=== PATIENT | male | born 1975 | race Caucasian/White ===

== ENCOUNTER → 2018-03-07 11:59 | Outpatient (CLI) | payer OTHER, SELFPAY ==
[2018-03-07 13:25] LABS: Ferritin 212 ng/mL (26-388)
[2018-03-10 16:10] LABS: Protein C Antigen 178 % (60-150); Protein C, Functional 180 % (73-180)
[2018-03-11 08:54] LABS: Protein S, Free 75 % (57-157); Protein S, Funtional 76 % (63-140); Protein S, Total 85 % (60-150); Transferrin 290 mg/dL (200-370)
== END ==
PROVIDERS: Family Provider Family Medicine; PCP Family Medicine; Visit Provider Family Medicine
DX: Z00.01 Encounter for general adult medical examination with abnormal findings (principal); I87.2 Venous insufficiency (chronic) (peripheral); D58.2 Other hemoglobinopathies; D68.59 Other primary thrombophilia; Z86.718 Personal history of other venous thrombosis and embolism
CPT/HCPCS: 36415; 81241; 82728; 84466; 85302; 85303; 85305; 85306

== ENCOUNTER → 2019-02-23 11:47 | Outpatient (CLI) | payer OTHER, SELFPAY ==
--- NOTE | 2019-02-23 | IMM_PTH ---
PATIENT: BRANDON MIGUEL LOC: [facility] U#:[id number] AGE/SX: 49/M ROOM: RE02/23/[address]: Dr. Chapito Almendarez DO : 1975 BED: DIS: SPEC #: [id number] RECD: 03/01/19 09:01 STATUS: LAVELL REAaron #: [id number] JEFFERY: 02/23/19 00:[address]: Chapito Almendarez DEPT: IMMUNOHISTOCHEMISTRY RECD BY: Marion Cesar Tissues: Skin of back, NOS Procedures: CK5-6 (add) P53 (add) Vimentin (add) Pankeratin (initial) MELAN-A (add) P40 (add) S-100 (add) PHYSICIAN & INSTITUTION [place] [id number] SPECIMEN INFORMATION: Tissue Source: Punch biopsy 4 mm low back Clinical Info: Rule out melanoma Specimen Number: [id number] CPT code: 05489, 30152 x6 METHODOLOGY: Deparaffinized sections of prefer/formalin-fixed tissue or PAP/DQ stained slides are incubated with monoclonal/polyclonal antibodies/oligonucleotide probes. Localization is made via biotin free immunoperoxidase method. Appropriate controls are performed and reacted as expected. Results on target cell population are indicated in the following table: RESULTS: ANTIBODY / CLONE RESULT AE1-3 (AE1/AE3/PCK26) negative P40 (BC28) negative Vimentin (V9) positive S-100 (4C4.9) positive Melan A (A103) positive CK5-6 (D5 & 1684) negative P53 (DO-7) negative These tests were developed and their performance characteristics determined by [facility]. They may not have been cleared or approved by the U.S. Food and Drug Administration. The FDA has determined that such clearance or approval is not necessary. INTERPRETATION: Skin of low back, punch biopsy: Consistent with junctional nevus. AM:javi 03/01/19
--- NOTE | 2019-02-23 11:30 | LES_PTH ---
PATIENT: BRANDON MIGUEL LOC: [facility] U#:[id number] AGE/SX: 49/M ROOM: RE02/23/[address]: Dr. Chapito Almendarez DO : 1975 BED: DIS: SPEC #: [id number] RECD: 02/23/19 15:38 STATUS: LAVELL MEGHNA #: [id number] JEFFERY: 02/23/19 11:[address]: Chapito Almendarez DEPT: SURGICAL PATHOLOGY RECD BY: Linus Prakash Tissues: Skin of back, NOS Procedures: Surgery Specimen Level IV HEADER OPERATION: Punch biopsy, atypical mole PRE-OP DIAGNOSIS: Rule out melanoma TISSUE SUBMITTED: Punch biopsy 4mm, low back MICROSCOPIC DIAGNOSIS Skin of low back, punch biopsy: Consistent with junctional nevus. AM:javi 03/01/19 COMMENT Immunohistochemistry ([id number]) supports the above diagnosis. Case has been reviewed in consultation with who concurs with the above diagnosis. IDC:SJ MICROSCOPIC DESCRIPTION Slides are reviewed. GROSS DESCRIPTION Received is one container labeled with the patient's name and not further designated. The specimen consists of a punch biopsy of calix-white skin measuring 0.2 cm in diameter and 0.2 cm in length. A calix-brown lesion is noted on the surface measuring 0.1 cm in greatest dimension. The specimen is totally submitted in one cassette. / JASBIR:javi 02/24/19 TC:5 CPT: 35528
== END ==
PROVIDERS: Family Provider Family Medicine; PCP Family Medicine; Visit Provider Family Medicine
DX: L98.9 Disorder of the skin and subcutaneous tissue, unspecified (principal)
CPT/HCPCS: 88305; 88341; 88342

== ENCOUNTER 2022-11-25 06:15 | Day surgery (SDC) | payer OTHER, SELFPAY ==
[2022-11-25] VITALS (7 sets, daily range): BP systolic 98–128; BP diastolic 65–91; PULSE 64–77; RESP 14–18; TEMP 36.1–36.6; O2SAT 96–99; BMI 26.9
--- NOTE | 2022-11-25 06:32 | PCM.HP.STD ---
[facility] - General General Date of Admission: 11/25/22 Date of Service: 11/25/22 Chief Complaint: Screening colonoscopy [facility] Elisa MIGUEL, is a 46 M who presents today for screening colonoscopy. He has not history of colon cancer. He only carries a past medical history of mild gastroesophageal reflux disease. He has never had a colonoscopy in the past. He is not had any signs or symptoms of GI bleeding. His weight has been stable. Overall he is in very good health. PFSH Medical History GERD (gastroesophageal reflux disease) Hx of deep venous thrombosis Non-smoker Home Medications multivitamin 1 tab PO DAILY 09/11/22 [History Last Taken Unknown] omeprazole magnesium 20 mg tablet,delayed release (Prilosec OTC) 20 mg PO DAILY PRN Indigestion 09/11/22 [History Last Taken Unknown] Allergy/AdvReac Type Severity Reaction Status Date / Time No Known Allergies Allergy Verified 11/25/22 06:33 Surgical History (Updated 11/18/22 @ 10:54 by Mariama Zepeda) History of repair of ACL (~1999) Social History (Updated 09/11/22 @ 09:32 by Leda Barcenas) household members: spouse current occupational status: employed Smoking Status: Never smoker alcohol intake: never substance use type: does not use ROS Review of Systems ROS Unobtainable: other Constitutional Constitutional: Denies fatigue, fever(s), poor appetite, weight gain or weight loss ENT HEENT: Denies mouth lesions Cardiovascular Cardiovascular: Denies abdominal bloating, abdominal edema or abdominal pain Respiratory/Chest Respiratory/Chest: Denies change in mental status, change in phlegm color, chest congestion or chest tightness Gastrointestinal Gastrointestinal: Denies belching, bloating, change in bowel habits, change in stool character, chewing difficulty, coffee ground emesis, constipation, cramping, diarrhea, dyspepsia, dysphagia, early satiety, excessive flatus, fecal incontinence, heartburn, hematemesis, hematochezia, hemorrhoids, loose stools, melena, nausea, odynophagia, rectal bleeding, tenesmus, vomiting or weight changes Genitourinary Genitourinary: Denies abdominal discomfort, burning urination or itching Musculoskeletal Musculoskeletal: Reports as per HPI; Denies muscle weakness or myalgias Integumentary Integumentary: Denies jaundice Neurologic Neurologic: Denies lack of coordination or weakness Psychiatric Psychiatric: Denies confusion, depression, memory loss, mood swings, paranoia or suicidal ideation Endocrine Endocrinology: Denies systems reviewed and no addt'l complaints, except as documented Hematologic/Lymphatic Hematologic/Lymphatic: Denies anemia, easy bleeding, easy bruising or lymphadenopathy Allergic/Immunologic Allergic/Immunologic: Denies systems reviewed and no addt'l complaints, except as documented Physical Exam Const alert General Appearance: cooperative Orientation / Consciousness: oriented to person HEENT hearing grossly normal bilaterally Head and Scalp: normal to inspection Face and Sinus: face symmetric Nose: external nose normal Mouth: oral and palatal mucosa normal Eyes conjunctivae normal General Eye: normal appearance of both eyes Neck full ROM General: normal visual inspection Lymph Lymphatic: no lymphadenopathy noted Chest inspection of chest normal and palpation of chest normal Chest: symmetrical chest wall rise Resp normal respiratory effort Effort and Inspection: able to speak in complete sentences Cardio regular rate GI non-distended Percussion: normal to percussion Rectal Exam: deferred Neuro Speech: speech normal Gait (Neuro): normal gait Assessment & Plan Assessment/Plan (1) Encounter for screening for malignant neoplasm of colon: PLAN: He will undergo screening colonoscopy. He was explained alternatives, risk, benefits include not withstanding bleeding, infection, sepsis, perforation, need for emergent and . He will have an ASA of 1.
[2022-11-25] MEDS: Lactated Ringers 1,000 ML 15 ML IV (06:39)
--- NOTE | 2022-11-25 07:15 | COLBX_PTH ---
PATIENT: BRANDON MIGUEL LOC: [facility] U#:[id number] AGE/SX: 46/M ROOM: RE11/25/[address]: Dr. Maikol Burgos DO : 1975 BED: DIS: 11/25/2022 SPEC #: [id number] RECD: 11/25/22 10:31 STATUS: LAVELL REAaron #: [id number] JEFFERY: 11/25/22 07:[address]: Maikol Burgos DEPT: SURGICAL PATHOLOGY RECD BY: Chong Lala ENTERED: 11/25/22 11:42 SP TYPE: COLON BX OTHR DR: Dr. Chapito Almendarez DO Tissues: Sigmoid colon biopsy Procedures: Surgery Specimen Level IV HEADER OPERATION: Colonoscopy ? open access (MAC) with biopsies PRE-OP DIAGNOSIS: Screening TISSUE SUBMITTED: Sigmoid polyp biopsy MICROSCOPIC DIAGNOSIS Sigmoid colon polyp, biopsy: Hyperplastic polyp. AM:javi 11/26/2022 MICROSCOPIC DESCRIPTION Slides are reviewed. GROSS DESCRIPTION Received in fixative is one container labeled with the patient's name and designated sigmoid polyp biopsy. The specimen consists of one irregular fragment of light calix soft tissue that measures 0.3 x 0.2 x 0.1 cm. The specimen is totally submitted in one cassette. / SJ:rg 11/25/2022 TC:5 CPT: 03503
--- NOTE | 2022-11-25 07:50 | OP.CCLET_ITS ---
11/25/2022 Chapito Almendarez [address] [facility] [place] [address] Re : Colonoscopy procedure for Henrik [place] Dear Dr. Almendarez This procedure was performed on Friday, November 25, 2022. My impressions and recommendations are as follows: Impressions : - One 5 mm polyp in the sigmoid colon, removed with a jumbo cold forceps. Resected and retrieved. - The examination was otherwise normal on direct and retroflexion views. Recommendations : - Discharge patient to home. - Resume previous diet. - Continue present medications. - Await pathology results. - Repeat colonoscopy in 5 years for surveillance based on pathology results. My findings are described in the full procedure note, which is enclosed. If I can be of further assistance, please feel free to contact me at . Sincerely, Maikol Burgos, 11/25/2022 7:50:35 AM This report has been signed electronically.
--- NOTE | 2022-11-25 07:50 | OP.COLON_ITS ---
Patient Name: Henrik Montez Procedure Date: 11/25/2022 7:24 AM Date of : 1975 Age: 46 Procedure: Colonoscopy Indications: Screening for colorectal malignant neoplasm Providers: Maikol Burgos DO Medicines: Monitored Anesthesia Care Patient Profile: This is a 46 year old male. Refer to note in patient chart for documentation of history and physical. Last Colonoscopy: none. The patient's first colonoscopy is today. Complications: No immediate complications. Procedure: Pre-Anesthesia Assessment: - Prior to the procedure, a History and Physical was performed, and patient medications and allergies were reviewed. The risks and benefits of the procedure and the sedation options and risks were discussed with the patient. All questions were answered and informed consent was obtained. Patient identification and proposed procedure were verified by the physician. Mental Status Examination: normal. Prophylactic Antibiotics: The patient does not require prophylactic antibiotics. Prior Anticoagulants: The patient has taken no previous anticoagulant or antiplatelet agents. ASA Grade Assessment: II - A patient with mild systemic disease. After reviewing the risks and benefits, the patient was deemed in satisfactory condition to undergo the procedure. The anesthesia plan was to use monitored anesthesia care (MAC). Immediately prior to administration of medications, the patient was re-assessed for adequacy to receive sedatives. The heart rate, respiratory rate, oxygen saturations, blood pressure, adequacy of pulmonary ventilation, and response to care were monitored throughout the procedure. The physical status of the patient was re-assessed after the procedure. After I obtained informed consent, the scope was passed under direct vision. Throughout the procedure, the patient's blood pressure, pulse, and oxygen saturations were monitored continuously. The Colonoscope was introduced through the anus and advanced to the cecum, identified by appendiceal orifice and ileocecal valve. The colonoscopy was performed without difficulty. The patient tolerated the procedure well. The quality of the bowel preparation was adequate. Scope In: 7:32:33 AM Scope Withdrawal Time 0 hours 9 minutes 8 seconds Scope Out: 7:45:51 AM Total Procedure Duration Time 0 hours 13 minutes 18 seconds Findings: The perianal and digital rectal examinations were normal. A 5 mm polyp was found in the sigmoid colon. The polyp was sessile. The polyp was removed with a jumbo cold forceps. Resection and retrieval were complete. Verification of patient identification for the specimen was done. Estimated blood loss was minimal. The exam was otherwise without abnormality on direct and retroflexion views. Impression: - One 5 mm polyp in the sigmoid colon, removed with a jumbo cold forceps. Resected and retrieved. - The examination was otherwise normal on direct and retroflexion views. Recommendation: - Discharge patient to home. - Resume previous diet. - Continue present medications. - Await pathology results. - Repeat colonoscopy in 5 years for surveillance based on pathology results. Procedure Code(s): --- Professional --- 55016, Colonoscopy, flexible; with biopsy, single or multiple CPT copyright 2017 [employer]. All rights reserved. The codes documented in this report are preliminary and upon truck service manager review may be revised to meet current compliance requirements. Maikol Burgos DO 11/25/2022 7:50:35 AM This report has been signed electronically. Number of Addenda: 0 Note Initiated On: 11/25/2022 7:24 AM
== END 2022-11-25 09:05 | disposition home or self-care (01) ==
LOC: EN 06:16 → AC 06:18
PROVIDERS: PCP Family Medicine; Referring Provider Internal Medicine Gastroenterology; Visit Provider Internal Medicine Gastroenterology
PROC: 0DJD8ZZ Inspection of Lower Intestinal Tract, Via Natural or Artificial Opening Endoscopic (ICD-10-PCS; CPT 45378; principal; 2022-11-25 07:10)
DX: Z12.11 Encounter for screening for malignant neoplasm of colon (principal); K21.9 Gastro-esophageal reflux disease without esophagitis; K63.5 Polyp of colon; Z86.718 Personal history of other venous thrombosis and embolism
CPT/HCPCS: 45380; 88305; J7120; J2405

== ENCOUNTER → 2023-03-25 | Outpatient (CLI) | payer OTHER, SELFPAY ==
--- NOTE | 2023-03-25 11:36 | VDLE_ITS ---
Reason For Study: Hx DVT RIGHT LEFT CFV is partially compressible with decreased CFV is compressible, spontaneous, phasic, flow. competent, and demonstrates normal Acute deep vein thrombosis is noted in the augmentation. FV. It is dilated and NONCOMPRESSIBLE. Acute deep vein thrombosis is noted in the POP V. It is dilated and NONCOMPRESSIBLE. Acute deep vein thrombosis is noted in the T/P Trunk. It is dilated and NONCOMPRESSIBLE. Acute deep vein thrombosis is noted in the Gastrocnemius V. It is dilated and NONCOMPRESSIBLE. Acute deep vein thrombosis is noted in the PTV. It is dilated and NONCOMPRESSIBLE. Peromeal V and Soleus V demonstrate vein wall thickening. SFJ is competent and measures 1.21 cm. GSV proximal thigh measures .56 x .55 cm. GSV at knee measures .54 x .57 cm. GSV INCOMPETENT throughout for greater than 0.5 seconds. SSV proximal calf is INCOMPETENT for greater than 0.5 seconds and measures .3 x .3 cm. Procedure This is a venous duplex using B-mode, color flow and spectral Doppler. Exam performed in department. The exam was diagnostic. A preliminary report was called and/or faxed to Dr. Almendarez's nurse. VL/Venous Duplex US, Unilateral Interpretation Summary Acute on chronic deep vein thrombosis noted in the right femoral vein, poplitea l vein, tibioperoneal trunk vein, gastrocnemius vein, posterior tibial vein. Chronic deep vein thrombosis noted in the right common femoral vein Positive for reflux in the right great saphenous vein, small saphenous vein Ordering Physician: Chapito Almendarez Performed By: Fransisco Jimenez RVT
== END | disposition home or self-care (01) ==
LOC: CVS 11:35
PROVIDERS: PCP Family Medicine; Referring Provider Family Medicine; Visit Provider Family Medicine
DX: I87.2 Venous insufficiency (chronic) (peripheral) (principal); Z86.718 Personal history of other venous thrombosis and embolism
CPT/HCPCS: 93971

== ENCOUNTER → 2023-11-04 | Outpatient (CLI) | payer OTHER, SELFPAY ==
--- NOTE | 2023-11-04 13:14 | VDLE_ITS ---
Reason For Study: swelling RIGHT LEFT CFV is compressible, spontaneous, phasic, CFV is compressible, spontaneous, phasic, competent and demonstrates normal competent, and demonstrates normal augmentation. augmentation. PTV is compressible. RT PerV is compressible. Prox and Mid FV are com pressible with normal venous flow patterns. Distal FV is partially compressible with bright intraluminal echoes. POP V, T/P Trunk, and Gastroc V are partially compressible with bright intraluminal echoes. Soleus V is now compressible. SFJ is INCOMPETENT and measures 1.0 cm. GSV proximal thigh measures .55 x .52 cm. GSV at knee measures .66 x .62 cm. GSV INCOMPETENT throughout for greater than 0.5 seconds. SSV proximal calf is INCOMPETENT for greater than 0.5 seconds and measures .48 x .49 cm. Procedure This is a venous duplex using B-mode, color flow and spectral Doppler. Exam performed in department. The exam was diagnostic. VL/Venous Duplex US, Unilateral Interpretation Summary Chronic deep vein thrombosis noted in the femoral vein, popliteal vein, tibiope roneal trunk vein, gastrocnemius vein. Positive for reflux in the saphenofemoral junction, great saphenous vein throug hout, small saphenous vein. Ordering Physician: Krystina Grady Referring Physician: Krystina Grady Performed By: Fransisco Jimenez, BEAN
== END | disposition home or self-care (01) ==
PROVIDERS: PCP Family Medicine; Referring Provider Physician Assistant; Visit Provider Physician Assistant
DX: Z86.718 Personal history of other venous thrombosis and embolism (principal)
CPT/HCPCS: 93971

== ENCOUNTER → 2024-06-12 | Outpatient (CLI) | payer OTHER, SELFPAY ==
--- NOTE | 2024-06-12 14:14 | RAD_ITS ---
STUDY: X-RAY CHEST REASON FOR EXAM: Male, 48 years old. Cough, left sided rales TECHNIQUE: Single AP portable view of the chest. COMPARISON: None. FINDINGS: The lungs are clear and expanded. There is no demonstrated pleural abnormality. Normal size heart. Normal mediastinum and beny. Normal visualized pulmonary arteries. Normal visualized aortic arch and descending thoracic aorta. Normal visualized thoracic spine. Normal visualized ribs, clavicles, and shoulders. There is no demonstrated abnormality of the visualized soft tissue structures of the upper abdomen. RAD/Chest 1 View IMPRESSION: Normal x-ray examination of the chest. Electronically Signed: Erasto Menezes MD at 14:53 EST ,
== END | disposition home or self-care (01) ==
LOC: MTRAD 14:09
PROVIDERS: PCP Family Medicine; Referring Provider Physician Assistant; Visit Provider Physician Assistant
DX: R05.9 Cough, unspecified (principal)
CPT/HCPCS: 71045

== ENCOUNTER → 2024-08-15 | Outpatient (CLI) | payer OTHER, SELFPAY ==
--- NOTE | 2024-08-15 12:47 | VDLE_ITS ---
Reason For Study Reason For Study: S/P RLE Vein Ablation / Chronic DVT RIGHT LEFT GSV is DILATED AND NONCOMPRESSIBLE from SFJ to knee. CFV is compressible, spontaneous, phasic, competent, Finding is consistent with recent superficial vein and demonstrates normal augmentation. ablation procedure. GSV knee to ankle is compressible SSV is DILATED AND NONCOMPRESSIBLE. Finding is consistent with recent superficial vein ablation procedure. CFV is compressible, spontaneous, phasic, competent and demonstrates normal augmentation. FV is compressible, spontaneous, phasic, competent and demonstrates normal augmentation. POP V is compressible, phasic, and INCOMPETENT for greater than 1.0 second. T/P Trunk is PARTIALLY COMPRESSIBLE with mixed and web like intraluminal echoes. Finding is consistent with CHRONIC DVT. Gastrocnemius Vein is PARTIALLY COMPRESSIBLE with mixed and web like intraluminal echoes. Finding is consistent with CHRONIC DVT. PTV is PARTIALLY COMPRESSIBLE with mixed and web like intraluminal echoes. Finding is consistent with CHRONIC DVT. Alexander V is compressible. Procedure This is a venous duplex using B-mode, color flow and spectral Doppler. Exam performed in department. The exam was diagnostic. VL/Venous Duplex US, Unilateral Interpretation Summary Successful vein ablation. No acute DVT. Chronic DVT right leg noted. Ordering Physician: Quang Moody Referring Physician: Chapito Almendarez Performed By: Earl Ruiz RVT
== END | disposition home or self-care (01) ==
LOC: CVS 12:47
PROVIDERS: PCP Family Medicine; Referring Provider Surgery Vascular Surgery; Visit Provider Surgery Vascular Surgery
DX: I82.591 Chronic embolism and thrombosis of other specified deep vein of right lower extremity (principal); I83.891 Varicose veins of right lower extremity with other complications
CPT/HCPCS: 93971

== ENCOUNTER → 2025-01-04 | Outpatient (CLI) | payer OTHER, SELFPAY ==
[2025-01-04 11:59] LABS: PSA,Total - Annual Screen 1.05 ng/mL (0.02-4.00)
== END | disposition home or self-care (01) ==
LOC: LAB 10:43
PROVIDERS: PCP Family Medicine; Referring Provider Family Medicine; Visit Provider Family Medicine
DX: Z12.5 Encounter for screening for malignant neoplasm of prostate (principal)
CPT/HCPCS: 36415; 84153; G0103